=== PATIENT | female | born 1950 | race African-American/Black ===

== ENCOUNTER 2017-07-05 13:57 | Emergency (ER) | payer OTHER ==
[2017-07-05 14:24] VITALS: BMI 23.0
--- NOTE | 2017-07-05 15:02 | PDOC ---
History of Present Illness - General History Source: Detention Records Exam Limitations: No Limitations - History of Present Illness Presenting Symptoms: Near-Syncope Timing/Duration: reports: resolved prior to arrival Associated Symptoms: Yes: Syncope (near) <Valerie Veliz - Last Filed: 07/05/17 18:05> <Veronica Chew - Last Filed: 07/06/17 02:01> - General Chief Complaint: Syncope/Near Syncope Stated Complaint: SYNCOPE Time Seen by Provider: 07/05/17 14:09 - History of Present Illness Initial Comments: 07/05/17 15:03 66-year-old female from [facility] was sent over for evaluation of near syncopal episode. Patient was sitting at the dining table when she appeared pale and generally weak. as per staff patient was arousable with normal vital signs but was sent to the ER for further evaluation. Patient is nonverbal (deaf/mute) upon arrival and unable to give information of symptoms or history of event. (Valerie Veliz) Past History - Travel Traveled outside of the country in the last 30 days: No Close contact w/someone who was outside of country & ill: No - Past Medical History Anemia: No Asthma: No Cancer: No Cardiac Disorders: No CVA: Yes (also deaf and mute) COPD: No CHF: No DVT: No Dementia: No Diabetes: Yes GI Disorders: Yes (gerd) Disorders: No HTN: Yes Hypercholesterolemia: Yes Liver Disease: No Psychiatric Problems: Yes Seizures: Yes Thyroid Disease: No - Surgical History Abdominal Surgery: No Appendectomy: No Cardiac Surgery: No Cholecystectomy: No Lung Surgery: No Neurologic Surgery: No Orthopedic Surgery: No - Immunization History Immunization Up to Date: Yes - Suicide/Smoking/Psychosocial Hx Smoking Status: No Smoking History: Unknown if ever smoked Have you smoked in the past 12 months: No Number of Cigarettes Smoked Daily: 0 Information on smoking cessation initiated: No Hx Alcohol Use: No Drug/Substance Use Hx: No Substance Use Type: Alcohol Patient Lives Alone: No Lives with[place]in: [place] [facility] <Valerie Veliz - Last Filed: 07/05/17 18:05> <Veronica Chew - Last Filed: 07/06/17 02:01> - Past Medical History Allergies/Adverse Reactions: Allergies Allergy/AdvReac Type Severity Reaction Status Date / Time No Known Allergies Allergy Verified 07/05/17 14:24 Home Medications: Ambulatory Orders Acetaminophen 650 mg PO PRN 07/05/17 Aspirin [ASA -] 81 mg PO DAILY 07/05/17 Brinzolamide 1% [Azopt 1% Ophtalmic Solution -] 1 drop TID 07/05/17 Budesonide/Formeterol Fumarate [SYMBICORT 80/4.5mcg -] 2 inh PO DAILY 07/05/17 Digoxin [Lanoxin -] 0.125 mg PO DAILY 07/05/17 Docusate Sodium [Colace] 300 mg PO HS 07/05/17 Fluticasone Prop 0.05% Nasal [Flonase -] 1 - 2 spray NS DAILY 07/05/17 Lacosamide [Vimpat -] 200 mg PO BID 07/05/17 Latanoprost 0.005% Eye Drops [Xalatan 0.005% Eye Drops -] 1 drop HS 07/05/17 Levetiracetam [Keppra -] 500 mg PO DAILY 07/05/17 Magnesium Hydrox 2400MG/30Ml [Milk of Magnesia -] 30 ml PO PRN 07/05/17 Magnesium Oxide [Magnesium] 400 mg PO DAILY 07/05/17 Metformin HCl [Glucophage -] 500 mg PO TID 07/05/17 Metoprolol Tartrate [Lopressor -] 25 mg PO BID 07/05/17 Mirtazapine [Remeron -] 15 mg PO DAILY 07/05/17 Pantoprazole Sodium [Protonix] 40 mg PO DAILY 07/05/17 Polyethylene Glycol 3350 [Miralax (For Bowel Prep) -] 17 gm PO DAILY 07/05/17 Rivaroxaban [Xarelto -] 20 mg PO DAILY 07/05/17 Simvastatin [Zocor -] 10 mg PO HS 07/05/17 Sodium Phosphate,Cook-Dibasic [Fleet Enema] 118 ml RC PRN 07/05/17 Thiamine Mononitrate [Vitamin B-1] 100 mg PO DAILY 07/05/17 Cardiac Specific PMH - Complaint Specific PMHX Cardiac Arrhythmia: No Pacemaker: No <Valerie Veliz - Last Filed: 07/05/17 18:05> Review of Systems - Review of Systems Able to Perform ROS?: No Is the patient limited Luxembourger proficient: No Constitutional: Yes: Weakness HEENTM: No: Symptoms Reported Respiratory: No: Symptoms reported Cardiac (ROS): Yes: See HPI ABD/GI: No: Symptoms Reported Integumentary: No: Rash <KerenValerie - Last Filed: 07/05/17 18:05> *Physical Exam - Physical Exam General Appearance: Yes: Nourished, Appropriately Dressed. No: Apparent Distress HEENT: positive: EOMI, LINDSAY, Pharynx Normal. negative: Pale Conjunctivae Neck: positive: Supple Respiratory/Chest: positive: Lungs Clear, Normal Breath Sounds. negative: Respiratory Distress, Accessory Muscle Use Cardiovascular: positive: Regular Rhythm, Regular Rate (62). negative: Murmur Vascular Pulses: Dorsalis-Pedis (R): 2+, Doralis-Pedis (L): 2+ Gastrointestinal/Abdominal: positive: Soft. negative: Tenderness Extremity: positive: Normal Capillary Refill, Pedal Edema Integumentary: positive: Normal Color, Dry, Warm Neurologic: positive: Motor Strength 5/5 (moving all extremeties actively) <Valerie Veliz - Last Filed: 07/05/17 18:05> - Vital Signs Last Vital Signs Temp Pulse Resp BP Pulse Ox 97.6 F 60 20 146/80 99 07/05/17 13:57 07/05/17 17:57 07/05/17 17:57 07/05/17 17:57 07/05/17 17:57 Heart Score/ECG Review - ECG Intrepretation Rhythm: Regular Rhythm (rate 62. no acute findings) <Valerie Veliz - Last Filed: 07/05/17 18:05> ED Treatment Course - LABORATORY CBC & Chemistry Diagram: 07/05/17 16:10 07/05/17 17:00 <Valerie Veliz - Last Filed: 07/05/17 18:05> - LABORATORY CBC & Chemistry Diagram: 07/05/17 16:10 07/05/17 20:50 <Veronica Chew - Last Filed: 07/06/17 02:01> - ADDITIONAL ORDERS Additional order review: Laboratory Results 07/05/17 07/05/17 07/05/17 20:50 20:50 17:00 Sodium 136 Cancelled Potassium 4.8 Cancelled Chloride 103 Cancelled Carbon Dioxide 27 Cancelled Anion Gap 6 L Cancelled BUN 25 H Cancelled Creatinine 0.9 Cancelled Creat Clearance w eGFR > 60 Cancelled Random Glucose 128 H Cancelled Calcium 8.7 Cancelled Total Bilirubin 0.2 Cancelled AST 8 L Cancelled ALT 18 Cancelled Alkaline Phosphatase 88 Cancelled Creatine Kinase 44 Cancelled Troponin I < 0.02 Cancelled Total Protein 6.8 Cancelled Albumin 3.2 L Cancelled Digoxin 0.9713 Cancelled 07/05/17 16:10 RBC 4.23 MCV 90.8 MCHC 32.4 RDW 13.0 MPV 9.6 Neutrophils % 77.4 Lymphocytes % 14.8 D Monocytes % 5.4 Eosinophils % 1.5 Basophils % 0.9 Medical Decision Making <Valerie Veliz - Last Filed: 07/05/17 18:05> <Veronica Chew - Last Filed: 07/06/17 02:01> - Medical Decision Making 07/05/17 16:05 Patient here for evaluation of near syncopal episode. Patient was about to start eating lunch when she appeared to be sluggish and slightly pale. As per staff patient was not diaphoretic and was very arousable within seconds. Staff decided to send patient to the ER and did not to a BGM at the facility. Patient' s BGM in route was 122. Patient is not a diabetic. Patient is on digoxin. Patient ordered for dig level, cardiac profile, EKG, chest x-ray CBC and comp along with a urinalysis. patient's previous labs drawn yesterday accompanied patient.. 07/05/17 16:37 Chest x-ray negative for acute findings. Patient required an arterial blood draw to the right radial pulse, which I did without difficulty. Daughter aware of patient's ER presence. 07/05/17 18:05 Laboratory Tests 07/05/17 16:10 WBC 6.7 Hgb 12.5 Hct 38.4 Plt Count 207 D Neutrophils % 77.4 Chemistry hemolyzed. Patient feeding herself a soft diet dinner with some prompting. (Valerie Veliz) *DC/Admit/Observation/Transfer <Valerie Veliz - Last Filed: 07/05/17 18:05> - Discharge Dispostion Admit: No <Veronica Chew - Last Filed: 07/06/17 02:01> Diagnosis at time of Disposition: Weak - Discharge Dispostion Disposition: [facility] Condition at time of disposition: Stable - Patient Instructions Printed Discharge Instructions: DI for Muscle Weakness Additional Instructions: Follow-up with your physician within 48 hours Return back to the emergency department for severe/persistent/worsening symptoms or any concerns
[2017-07-05 17:10] LABS: BASO % 0.9 % (0-2.0); EOS % 1.5 % (0-4.5); HEMATOCRIT 38.4 % (32.4-45.2); HEMOGLOBIN 12.5 GM/dL (10.7-15.3); LYMPH % 14.8 % (8-40); MCH 29.5 pg (25.7-33.7); MCHC 32.4 g/dl (32.0-36.0); MEAN CELL VOLUME 90.8 fl (80-96); MEAN PLT VOLUME 9.6 fl (7.5-11.1); MONO % 5.4 % (3.8-10.2); NEUT % 77.4 % (42.8-82.8); PLATELET COUNT 207 K/MM3 (134-434); RBC 4.23 M/mm3 (3.60-5.2); WHITE BLOOD COUNT 6.7 K/mm3 (4.0-10.0)
[2017-07-05 22:09] LABS: ALBUMIN 3.2 g/dl (3.4-5.0); ANION GAP 6 (8-16); BILIRUBIN,TOTAL 0.2 mg/dL (0.2-1.0); BLOOD UREA NITROGEN 25 mg/dL (7-18); CALCIUM 8.7 mg/dL (8.5-10.1); CHLORIDE 103 mmol/L (98-107); CO2 27 mmol/L (21-32); CREATININE 0.9 mg/dL (0.55-1.02); GLUCOSE,RANDOM 128 mg/dL (74-106); POTASSIUM 4.8 mmol/L (3.5-5.1); SGOT/AST 8 U/L (15-37); SGPT/ALT 18 U/L (12-78); SODIUM 136 mmol/L (136-145); TOT PROT 6.8 g/dl (6.4-8.2)
[2017-07-05 22:21] LABS: ALK PHOS 88 U/L (45-117)
[2017-07-06 02:39] VITALS: BP 134/76; PULSE 61; TEMP 97.9
--- NOTE | 2017-07-06 12:34 | EKG ---
Test Reason : Blood Pressure : / mmHG Vent. Rate : 062 BPM Atrial Rate : 062 BPM P-R Int : 158 ms QRS Dur : 066 ms QT Int : 364 ms P-R-T Axes : 046 022 068 degrees QTc Int : 369 ms NORMAL SINUS RHYTHM POOR R WAVE PROGRESSION ABNORMAL ECG WHEN COMPARED WITH ECG OF 15-MAY-2015 15:02, NONSPECIFIC T WAVE ABNORMALITY NOW EVIDENT IN LATERAL LEADS NOTE ERROR IN LEAD V4, RECOMMEND REPEAT TRACING Confirmed by LINDSAY VIRGEN MD ([id number]) on 07/06/2017 12:34:09 PM Referred By: Confirmed By:LINDSAY VIRGEN MD
== END 2017-07-06 02:06 ==
LOC: JER 13:57
DX: R53.1 Weakness (principal); I10 Essential (primary) hypertension; E11.9 Type 2 diabetes mellitus without complications; Z79.84 Long term (current) use of oral hypoglycemic drugs; E78.00 Pure hypercholesterolemia, unspecified; G40.509 Epileptic seizures related to external causes, not intractable, without status epilepticus; Z86.73 Personal history of transient ischemic attack (TIA), and cerebral infarction without residual deficits; H91.3 Deaf nonspeaking, not elsewhere classified; Z79.82 Long term (current) use of aspirin
CPT/HCPCS: 36415; 71045-TC; 80053; 80162; 82550; 84484; 85025; 93005; 93010; 99282-25